=== PATIENT | male | born 1955 | race Native Hawaiian/Other Pacific Islander ===

== ENCOUNTER 2020-06-29 21:24 | Outpatient (CLI) | payer OTHER ==
[2020-06-29 23:14] LABS: PLATELET COUNT 201 K/uL (142-355)
[2020-06-29 23:39] LABS: POTASSIUM 4.1 mmol/L (3.6-5.2)
== END 2020-06-29 23:41 | disposition home or self-care (01) ==
LOC: LAB 21:24
PROVIDERS: Nurse Practitioner Family
DX: Z00.00 Encounter for general adult medical examination without abnormal findings (principal); E11.9 Type 2 diabetes mellitus without complications; Z79.899 Other long term (current) drug therapy; Z12.5 Encounter for screening for malignant neoplasm of prostate; R53.81 Other malaise; R53.83 Other fatigue
CPT/HCPCS: 80053; 80061; 82306; 82607; 83036; 84153; 84439; 84443; 85027

== ENCOUNTER 2020-12-02 17:38 | Outpatient (CLI) | payer OTHER | END 2020-12-02 22:26 | disposition home or self-care (01) | LOC: LAB 17:38 | PROVIDERS: ATTEND Nurse Practitioner Family | DX: N41.0 Acute prostatitis (principal); R97.20 Elevated prostate specific antigen [PSA] | CPT/HCPCS: 84153 ==

== ENCOUNTER 2020-12-27 16:12 | Outpatient (CLI) | payer OTHER ==
[2020-12-27 16:37] LABS: PLATELET COUNT 202 K/uL (142-355)
[2020-12-27 17:07] LABS: POTASSIUM 4.1 mmol/L (3.6-5.2)
== END 2020-12-27 21:40 | disposition home or self-care (01) ==
LOC: LAB 16:12
PROVIDERS: ATTEND Nurse Practitioner Family
DX: Z00.00 Encounter for general adult medical examination without abnormal findings (principal); Z79.899 Other long term (current) drug therapy; R53.83 Other fatigue; R53.81 Other malaise; E11.9 Type 2 diabetes mellitus without complications; N52.1 Erectile dysfunction due to diseases classified elsewhere; E53.8 Deficiency of other specified B group vitamins; E55.9 Vitamin D deficiency, unspecified; R97.20 Elevated prostate specific antigen [PSA]
CPT/HCPCS: 80053; 80061; 82306; 82607; 83036; 84153; 84439; 84443; 85027